=== PATIENT | female | born 1945 | race Caucasian/White ===

== ENCOUNTER → 2016-11-04 | Outpatient (CLI) | payer OTHER, MEDICARE | LOC: BMCIMAGING 14:43 | DX: Z12.31 Encounter for screening mammogram for malignant neoplasm of breast (principal); Z85.3 Personal history of malignant neoplasm of breast | CPT/HCPCS: G0202 ==

== ENCOUNTER 2017-04-21 11:44 | Outpatient (CLI) | payer OTHER, MEDICARE ==
[2017-04-21] MEDS ORDERED: PROPOFOL/EMULSION 500 MG/50 ML BOTTLE IV ONE (11:59)
[2017-04-21] MEDS ORDERED: SUCCINYLCHOLINE CHLORIDE 200 MG/10 ML VIAL ONE (12:04)
[2017-04-21] MEDS ORDERED: ROCURONIUM 100 MG/10 ML VIAL ONE (12:04)
[2017-04-21] MEDS ORDERED: PROPOFOL 200 MG/20 ML VIAL ONE (12:06)
--- NOTE | 2017-04-21 12:48 | PDANEPAE ---
ANE Past Medical History - Cardiovascular History Hx Hypertension: No Hx Arrhythmias: No Hx Chest Pain: No Hx Coronary Artery / Peripheral Vascular Disease: No Hx CHF / Valvular Disease: No Hx Palpitations: No - Pulmonary History Hx COPD: No Hx Asthma/Reactive Airway Disease: No Hx Recent Upper Respiratory Infection: No Hx Oxygen in Use at Home: No Hx Sleep Apnea: No Sleep Apnea Screening Result - Last Documented: Negative - Neurologic History Hx Cerebrovascular Accident: No Hx Seizures: No Hx Dementia: No - Endocrine History Hx Diabetes: No - Renal History Hx Renal Disorders: No - Liver History Hx Hepatic Disorders: No - Neurological & Psychiatric Hx Hx Neurological and Psychiatric Disorders: Yes - Cancer History Hx Cancer: No - Congenital Disorder History Hx Congenital Disorders: No - GI History Hx Gastrointestinal Disorders: No - Chronic Pain History Chronic Pain: No - Surgical History Prior Surgeries: L. knee surgery. Flavio in Right leg. ANE Review of Systems Review of Systems: - Exercise capacity METS (RN): 4 METS ANE Patient History - Allergies Allergies/Adverse Reactions: No Known Allergies Allergy (Verified 03/28/17 15:33) - Home Medications Home Medications: Calcium Citrate W/Vit D [Citracal + D (OTC)] 315 mg PO DAILY 09/21/11 [Last Taken 04/20/17] Multivitamins [Multivitamin (*)] 1 each PO DAILY 03/21/17 [Last Taken 04/20/17] Oxybutynin Chloride [Ditropan Xl] 10 mg PO DAILY 03/21/17 [Last Taken 04/20/17] - Smoking Hx Smoking Status: Never smoked ANE Labs/Vital Signs - Labs Result Diagrams: 04/21/17 12:30 - Vital Signs Blood Pressure: 124/77 Heart Rate: 73 Respiratory Rate: 18 O2 Sat (%): 91 Height: 167.64 cm Weight: 49.895 kg ANE Physical Exam - Airway Mallampati Score: Class 1 - ASA Status ASA Status: II ANE Anesthesia Plan Anesthesia Plan: GA w LMA
[2017-04-21] MEDS ORDERED: GADOBUTROL 10 ML VIAL IVP ONE (12:57)
[2017-04-21] MEDS ORDERED: MIDAZOLAM 2 MG/2 ML VIAL ONE (13:00)
[2017-04-21] MEDS ORDERED: NALOXONE HCL 0.4 MG/ML INJ IVP PRN (14:07)
[2017-04-21] MEDS ORDERED: fentaNYL 100 MCG/2 ML INJ IVP PRN (14:07)
[2017-04-21] MEDS ORDERED: LR 500 ML IV PRN (14:07)
[2017-04-21] MEDS ORDERED: PROMETHAZINE HCL 25 MG/ML INJ IVP PRN (14:07)
--- NOTE | 2017-04-21 14:09 | POSTANESTH ---
Post Anesthetic Evaluation Cardiovascular Status: Normal, Stable Respiratory Status: Normal, Stable Level of Consciousness/Mental Status: Can Participate in Eval Pain Control: Adequate, Prn Tx Ordered Nausea/Vomiting Control: Adequate, Prn Tx Ordered Complications Possibly Related to Anesthesia: None Noted
[2017-04-21] MEDS ORDERED: ONDANSETRON 4 MG/2 ML VIAL ONE (14:29)
[2017-04-21 14:59] VITALS: TEMP 96.8
[2017-04-21 15:06] VITALS: BP 132/64; PULSE 52; RESP 14; O2SAT 99
== END 2017-04-21 15:30 | disposition home or self-care (01) ==
LOC: FSGY 11:44
PROVIDERS: ATTEND Physician Assistant Surgical
DX: R93.0 Abnormal findings on diagnostic imaging of skull and head, not elsewhere classified (principal); G25.0 Essential tremor
CPT/HCPCS: 70552; A9585; J2250; J2405; J2704; J0330

== ENCOUNTER 2017-04-27 05:15 | Inpatient (IN) | payer OTHER, MEDICARE ==
--- NOTE | 2017-04-20 11:34 | GHP ---
[f rep st] PREOP HISTORY AND PHYSICAL DATE OF ADMISSION: 04/27/2017 HPI: The patient is a 71-year-old female with essential tremor. She has been treated for years by [facility] neurologist, Dr. Mcbride. Her tremors have been present her entire life. The tremor began bila terally but is worse on the right. She is right-handed. Medication provides her with some relief fo r a period of time, however, is no longer effective. Drinking alcohol will reduce her tremors. Both her mother and sister have essential tremor. She denies rigidity, bradykinesia, or other signs and symptoms of Parkinson disease. PAST MEDICAL HISTORY: Essential tremor. PAST SURGICAL HISTORY: Denies. ALLERGIES: No known drug allergies. CURRENT HOME MEDICATIONS: Please refer to the MAR. SOCIAL HISTORY: Patient denies alcohol and tobacco use. REVIEW OF SYSTEMS: Patient denies chest pain, shortness of breath, abdominal pain, nausea, vomiting, fevers, or chills. Denies loss of bowel or bladder control. Admits to bilateral upper extremity tr emor. PHYSICAL EXAM: Patient was seen and examined, appears in no apparent distress. Mood and affect are appropriate. Alert and oriented. Facial expression is symmetrical. Tongue was in the midline with protrusion. Hearing is grossly intact. Speech is fluent without any dysarthria. Muscle strength is well preserved in upper and lower extremities at a 5/5. Sensation is intact to light touch. ASSESSMENT AND PLAN: In summary, the patient is a 71-year-old female with essential tremor. She has undergone a neuropsychological exam evaluation by Dr. Palumbo, who states that the patient is a good candidate for deep brain stimulation. We explained to the patient that DBS can reduce tremor by 60% to 90%. We discussed the option of proceeding with bilateral or unilateral DBS. With bilateral DBS , this can result in speech slurring, however, is not always the case. At this time, the patient has elected to proceed with left VIM DBS lead placement for right hand tremor. Once recovered from surg krystal, she will then determine if she would like to proceed with right VIM DBS lead placement. The ris ks, benefits, and procedure were discussed in detail with the patient. The patient has agreed and co nsented to proceed with left VIM deep brain stimulator lead placement for right hand tremor. /[id number]/MODL
[2017-04-27] MEDS ORDERED: LIDOCAINE 1% 2 ML INJ ID PRN (05:39)
[2017-04-27] MEDS ORDERED: LR 1,000 ML IV ONE (05:39)
[2017-04-27] MEDS ORDERED: CEFUROXIME 1,500 MG in STERILE WATER INJ 17 ML IV ONE (06:00)
--- NOTE | 2017-04-27 06:39 | PDHPUP ---
History & Physical Update H&P update statement: This history and physical update is based on an assessment of the patient which was completed after admission or registration (within 24 hours), but prior to the surgery/procedure. H&P update: H&P reviewed & patient examined, no change in patient's condition since H&P completed
[2017-04-27] MEDS ORDERED: EPINEPHrine 1 MG/10 ML SYR IVP ONE (06:42)
[2017-04-27] MEDS ORDERED: GENTAMICIN SULFATE 80 MG/2 ML VIAL ONE (06:42)
[2017-04-27] MEDS ORDERED: BUPIVACAINE 0.25% 30 ML SDV ONE (06:42)
[2017-04-27] MEDS ORDERED: LIDOCAINE 2% JELLY 20 ML (UROJECT) ONE (06:42)
[2017-04-27] MEDS ORDERED: THROMBIN (BOVINE) 20,000 UNIT VIAL TP ONE (06:42)
[2017-04-27] MEDS ORDERED: POVIDONE-IODINE 30 GM OINTTUBE TP ONE (06:43)
[2017-04-27] MEDS ORDERED: SURGIFLO MATRIX KIT WITH THROMBIN 8ml TP ONE (06:47)
--- NOTE | 2017-04-27 06:50 | PDANEPAE ---
ANE History of Present Illness DBS for right hand tremor ANE Past Medical History - Cardiovascular History Hx Hypertension: No Hx Arrhythmias: No Hx Chest Pain: No Hx Coronary Artery / Peripheral Vascular Disease: No Hx CHF / Valvular Disease: No Hx Palpitations: No - Pulmonary History Hx COPD: No Hx Asthma/Reactive Airway Disease: No Hx Recent Upper Respiratory Infection: No Hx Oxygen in Use at Home: No Hx Sleep Apnea: No Sleep Apnea Screening Result - Last Documented: Negative - Neurologic History Hx Cerebrovascular Accident: No Hx Seizures: No Hx Dementia: No Neurologic History Comment: essential tremor - Endocrine History Hx Diabetes: No Hypothyroid: No Hyperthyroid: No - Renal History Hx Renal Disorders: No - Liver History Hx Hepatic Disorders: No - Neurological & Psychiatric Hx Hx Neurological and Psychiatric Disorders: Yes - Cancer History Hx Cancer: No Cancer History Comment: breast 04/2013 surgery and radiation - Congenital Disorder History Hx Congenital Disorders: No - GI History Hx Gastrointestinal Disorders: No Gastrointestinal History Comment: constipation with pain medications during leg repair - Other Health History Other Health History: wears glasses - Chronic Pain History Chronic Pain: No - Surgical History Prior Surgeries: L. knee surgery. Flavio in Right leg. ANE Review of Systems Review of systems is: negative Review of Systems: - Exercise capacity Exercise capacity: >=4 METS METS (RN): 4 METS ANE Patient History - Allergies Allergies/Adverse Reactions: No Known Allergies Allergy (Verified 03/28/17 15:33) - Home Medications Home Medications: Calcium Citrate W/Vit D [Citracal + D (OTC)] 315 mg PO DAILY 09/21/11 [Last Taken 04/20/17] Multivitamins [Multivitamin (*)] 1 each PO DAILY 03/21/17 [Last Taken 04/20/17] Oxybutynin Chloride [Ditropan Xl] 10 mg PO DAILY 03/21/17 [Last Taken 04/20/17] - NPO status NPO Status: no food or drink >8 hours NPO Since - Liquids (Date): 04/27/17 NPO Since - Liquids (Time): 04:00 NPO Since - Solids (Date): 04/26/17 NPO Since - Solids (Time): 19:00 - Anes Hx Anes Hx: no prior problems - Smoking Hx Smoking Status: Never smoked - Alcohol Use Alcohol Use: None - Family Anes Hx Family Hx Anesthesia Complications: none ANE Labs/Vital Signs - Vital Signs Vital Signs: reviewed preoperatively; see RN documention for details Blood Pressure: 132/74 Heart Rate: 68 Respiratory Rate: 18 O2 Sat (%): 96 Height: 167.64 cm Weight: 49.442 kg ANE Physical Exam - Airway Neck exam: FROM Mallampati Score: Class 1 - Pulmonary Pulmonary: no respiratory distress - Cardiovascular Cardiovascular: regular rate and rhythym - ASA Status ASA Status: I ANE Anesthesia Plan Anesthesia Plan: MAC
[2017-04-27 06:55] LABS: PLATELET COUNT 172 10^3/uL (150-400)
[2017-04-27 07:09] LABS: INR 1.04 (0.83-1.16); PROTIME(PATIENT) 13.8 SEC (12.0-15.0)
[2017-04-27] MEDS ORDERED: fentaNYL 100 MCG/2 ML INJ ONE (07:11)
[2017-04-27] MEDS ORDERED: LIDOCAINE 2% 5 ML SDV ONE (07:11)
[2017-04-27] MEDS ORDERED: PROPOFOL/EMULSION 500 MG/50 ML BOTTLE IV ONE ×2 (07:11→09:24)
[2017-04-27] MEDS ORDERED: DEXMEDETOMIDINE HCL 200 MCG in NS 50 ML IV ONE (07:30)
[2017-04-27] MEDS ORDERED: niCARdipine/NACL 200 ML IV ONE (07:30)
[2017-04-27] MEDS ORDERED: ONDANSETRON 4 MG/2 ML VIAL IVP PRN ×2 (10:11→10:14)
[2017-04-27] MEDS ORDERED: LACTULOSE 20 GM/30 ML UDCUP PO PRN (10:11)
[2017-04-27] MEDS ORDERED: BISACODYL 10 MG SUPP PR PRN (10:11)
[2017-04-27] MEDS ORDERED: MAGNESIUM HYDROXIDE 30 ML UDCUP PO PRN (10:11)
[2017-04-27] MEDS ORDERED: POLYETHYLENE GLYCOL 3350 17 GM PKT PO PRN (10:11)
[2017-04-27] MEDS ORDERED: OXYCODONE/APAP 5/325 TAB PO PRN (10:14)
[2017-04-27] MEDS ORDERED: ACETAMINOPHEN 500 MG TAB PO PRN (10:14)
[2017-04-27] MEDS ORDERED: fentaNYL 100 MCG/2 ML INJ IVP PRN (10:14)
[2017-04-27] MEDS ORDERED: NALOXONE HCL 0.4 MG/ML INJ IVP PRN (10:14)
[2017-04-27] MEDS ORDERED: NS W/ 20 KCl/L 1,000 ML IV SCH (10:15)
[2017-04-27] MEDS ORDERED: HYDROCODONE/APAP 5/325 TAB PO PRN (10:16)
--- NOTE | 2017-04-27 10:26 | GOP ---
[f rep st] OPERATIVE REPORT DATE OF OPERATION: 04/27/2017 SURGEON: Ramandeep Denney DO NEUROSURGEON: Ramandeep Denney DO MINE MANAGER: None. PREOPERATIVE DIAGNOSIS: Essential tremor. POSTOPERATIVE DIAGNOSIS: Essential tremor. PROCEDURE PERFORMED: 1. Placement of right VIM deep brain stimulator lead placement with Medtronic 3387 lead. 2. Stealth. FINDINGS: SPECIMENS: None. ESTIMATED BLOOD LOSS: 20 mL. INDICATIONS: This is a 71-year-old female with benign essential tremor, was evaluated by a multidisc iplinary team and found to be a good candidate for DBS for essential tremor. She elected to move for dawson with a left-sided lead placement for right-sided body symptoms. DESCRIPTION OF PROCEDURE: She was identified, consented. Sites were marked. Brought to the operati ng room, anesthetized under local with MAC. Hair was clipped with the OR clippers. Head was cleanse d with ChloraPrep. 0.25% Marcaine with epinephrine was used to anesthetize the pin sites and povidon e-iodine was placed on the pins. A Leksell frame was placed in a stereotactic fashion, and an O-arm 2 spin with the stereotactic localizer box was performed and merged to the preoperative plan in the [employer] software. The ACPC distance was 24.2 mm. The entry point was an X of -36.84, Y of 36.09, Z of 62.58. The target was an X of -14.13, a y of -5.71, a Z of -0.24. This corresponded to an X of 119, a Y of 89, a Z of 93.5, a ring of 57 degrees, and an arc of 107.[address] We elected to place the center on posterior tract, particularly given the fact that she had a very short ACPC. She was prepped and draped in the usual sterile fashion. All Leksell frame coordinates were set and triple c hecked by all providers in the room. The incision site was marked using the preoperatively planned L sell frame coordinates, and a half-townsend incision was anesthetized with 0.25% Marcaine with epinephr ine. Incision was made with a 10 blade. Hemostasis was obtained with bipolar and Selina clips. Kim osteal elevator was used to elevate the periosteum. The skull opening was marked using the cannula i n the preoperative coordinates, and a aerial applicator pilot hole was drilled. Then a 14 mm bur hole was drilled, and the bone edges were waxed. The dura was opened sharply with an 11 blade. Bipolar was used for hemo stasis. We then gently inserted both the center and posterior cannulas and stylets and placed Gelfoa m and DuraSeal. We then removed the stylets, placed the microelectrodes, and then performed microele ctrode recording. We got excellent recordings. Please refer to Elaine Naqvi's ESTEVAN for those jan rdings; however, the posterior tract was more active. We did get motor driving as well as deep and l ight touch in the appropriate position. We elected to macro stim here. We got excellent results wit h macro stim. We elected to place the lead where we got out of the IM at the bottom of the bottom co ntact at 1 blow. We drove this into position, removed the microelectrodes, placed the stylet in the center cannula, measured and placed the lead, tested the lead at all 4 contacts, got excellent stimul ation effect with low to no side effects. Elected to leave the lead here. Took an x-ray with the jeff mb sites, removed the center cannula, performed a stereotactic spin which was merged to the preoperat maksim plan, and indeed we were at the 2 mm posterior, perfectly accurate to where we expected to be. W e then retracted the removed the Gel-Foam and DuraSeal, retracted the cannula, placed the clipping me mary. It should have been noted that the stim lock device was locked down with 5 mm screws prior to placing the leads, and the clipping mechanism was verified to clip and lock. We placed a clip, lo cked it into place, marked the lead, removed the stylet, brought the lead down and out, placed it int o the groove, placed the cap, and took another x-ray. It had not migrated. Placed the boot over the lead extension complex, placed extension over protecting each contact with the torque wrench, locked it into place with the torque wrench, brought the boot over the lead extension complex, tied it in p osition with 2-0 silk ties at 2 positions tunneled posteriorly with a periosteal elevator. Anestheti zed the stab incision with 11 blade with 0.25% Marcaine. Then with an 11 blade, made a stab incision , tunneled posterior to anterior, brought the lead extension down and out, coiling the lead posterior and around the incision. Took another x-ray. It had not migrated. Copiously irrigated with over a liter of gentamicin-infused saline. Closed the galea with 2-0 Vicryl pop-offs. The skin was closed with 3-0 running nylon. The wound was dressed with Xeroform and Telfa. The frame was removed. Pat ient tolerated procedure well. No complications. MICROELECTRODE RECORDING: Elaine Naqvi PA-C. Please refer to her dictation for all ESTEVAN. FLUIDS: 600 mL of crystalloid. URINE OUTPUT: 100 mL. DRAINS: None. COMPLICATIONS: None. /[id number]/MODL
[2017-04-27] MEDS ORDERED: hydrALAZINE 20 MG/ML VIAL IVP PRN ×2 (10:35→18:00)
--- NOTE | 2017-04-27 10:38 | POSTOPPROG ---
Post Op Note Date of Operation: 04/27/17 Surgeon: Ramandeep Denney Grassroots Organizer: Elaine Naqvi PA-C Anesthesiologist: Dr. Ramírez Anesthesia: IV Sedation Pre-op Diagnosis: Essential Tremor Post-op Diagnosis: Essential Tremor Procedure: Left DBS VIM lead placement Inf/Abcess present in the surg proc area at time of surgery?: No Depth: Deep Incisional (Fascial) EBL: Minimal Plan Plan: 71 yo female s/p left VIM DBS lead placement - neuro checks - pain control - postop head CT pending - maintain SBP < 140 - dispo: home tomorrow Exam Awake. Alert PERRL. EOMI Facial expression symmetrical Strength full
--- NOTE | 2017-04-27 11:02 | GPN ---
[f rep st] PROCEDURE NOTE DATE OF PROCEDURE: 04/27/2017 PREPROCEDURE DIAGNOSIS: Parkinson disease. POSTPROCEDURE DIAGNOSIS: Parkinson disease. PROCEDURE PERFORMED: Intraoperative functional subcortical mapping by microelectrode recording and s timulation. COMPLICATIONS: None. INDICATIONS FOR PROCEDURE: Determination of optimal electrode lead placement for deep brain stimulat ion therapy for essential tremor to the ventral intermediate nucleus. DESCRIPTION OF PROCEDURE: Following the incision on the left, a john hole was drilled. The arc was then arranged with the following coordinates: X 118, Y 89, and V 93.5, ring 57, arc 107.2. The jan rding microelectrode was then slowly advanced into the brain using a center and a posterior tract. T here was evidence of entering VIM in the center tract at 7 above target, and change in stimulation wi th passive range of motion of the shoulder at 6.5 above target. Overall, the posterior tract was mor e active. There was evidence of entering VIM at 8 above target. There was change in stimulation wit h passive range of motion of the elbow, flexion at 6.5 above target. There was change in stimulation with deep touch to the hand at 1.6 above target, and light touch to the mouth at 0.9 below target. With these microelectrode recordings, we then proceeded with macro stimulation. The patient had trem or improvement at 4.0, however, did have some constant tingling of the right-sided lip, tongue, face region. We elected to proceed with test stimulation with the posterior tract. The lead was placed w ith the bottom of the lead at 1 below target. At 0- patient had right arm tingling, persistent at 2. 0 with improved tremor control. At 1- patient had improved tremor control at 2.0, transient tingling in her right arm at 3.0, and persistent 3.5. At 2- patient had improved tremor at 2.0, with no side effects up to 3.5. At 3- patient had improved tremor with no side effects up to 3.5. We elected to leave the lead at this location with the bottom of the lead at 1 below target. The patient tolerate d the procedure well without any complications, and was transferred to recovery. /[id number]/MODL
[2017-04-27] MEDS: ACETAMINOPHEN 325 MG TAB PO PRN ×2 (14:30→23:56)
[2017-04-27] MEDS: CEFUROXIME 1,500 MG in STERILE WATER INJ 17 ML IV SCH ×2 (17:03→23:51)
[2017-04-27] MEDS ORDERED: hydrALAZINE 20 MG/ML VIAL IVP ONE (17:45)
--- NOTE | 2017-04-27 18:19 | PDMN ---
Medical Necessity Medical necessity: Pt meets IP criteria; [facility] IP only surgery CPT 23207 Neurosurgery
[2017-04-27] MEDS: SENNOSIDES/DOCUSATE SODIUM TAB PO SCH (22:03)
[2017-04-28 08:15] VITALS: BP 135/78; PULSE 75; RESP 16; TEMP 98.5; O2SAT 93
[2017-04-28] MEDS: SENNOSIDES/DOCUSATE SODIUM TAB PO SCH (08:23)
--- NOTE | 2017-04-28 08:24 | NEUSURGPN ---
Date of Surgery: 04/27/17 Post Op Day: 1 Assessment/Plan: 71 yo female s/p left VIM DBS lead placement POD #1 - pain control, patient has expected incisional pain - postop head CT stable -removed head wrap and stapled telfa, redressed with telfa and tape - dispo: patient may dc to home today -patient discussed with Dr Denney -Please call neurosurgery with any questions/concerns Subjective: incisional discomfort improved with head wrap removed Objective: Awake. Alert PERRL. EOMI Facial expression symmetrical Strength full Neuro Check Frequency: per routine Urinary Catheter in Place: No - Physician Discussed Patient with : [facility] Physical Exam - Vitals, I&O, Labs I and O 04/27/17 04/28/17 04/29/17 05:59 05:59 05:59 Intake Total 1100 Output Total 1994 Balance -895 Weight 49.442 kg Intake: Oral (ml) 200 IV Intake (ml) 900 Output: Urine (ml) 1975 Catheter 175 Toilet 1800 Estimated Blood Loss (ml) 20 Other: Intake Quantity Yes Sufficient Number of Voids Toilet 1 Number of Emesis 1 Occurrences Vital Signs Temp Pulse Resp BP Pulse Ox 36.9 C 75 16 135/78 H 93 04/28/17 08:00 04/28/17 08:00 04/28/17 08:00 04/28/17 08:00 04/28/17 08:00 Laboratory Results 04/27/17 06:45 04/27/17 06:45 ICD10 Worksheet Patient Problems: Problems Problem Status Onset Essential tremor Acute - ICD10 Problem Qualifiers (1) Essential tremor
[2017-04-28] MEDS ORDERED: OXYBUTYNIN 5 MG EXT REL TAB PO SCH (09:00)
[2017-04-28] MEDS ORDERED: NON-FORMULARY NEW DRUG (Oxybutynin Chloride [Ditropan Xl] 10 MG) PO SCH (09:00)
--- NOTE | 2017-04-28 11:52 | ASMTCMCOM ---
CM Note CM Note Notes: Pt medically stable for d/c, no CM d/c needs identified. PT rec home. Pt son will stay w her. Date Signed: 04/28/2017 11:51 AM Electronically Signed By:LONG Hook
[2017-04-30] MEDS ORDERED: ENOXAPARIN 40 MG/0.4 ML SYR SC SCH (09:00)
== END 2017-04-28 10:20 | disposition home or self-care (01) | DRG 27 ==
LOC: F3E 05:15 → F3N 13:10
PROVIDERS: ADMIT Neurological Surgery; ATTEND Neurological Surgery
PROC: 00K03ZZ Map Brain, Percutaneous Approach (ICD-10-PCS; principal; 2017-04-27 07:15)
PROC: 00H03MZ Insertion of Neurostimulator Lead into Brain, Percutaneous Approach (ICD-10-PCS; principal; 2017-04-27 07:15)
DX: G25.0 Essential tremor (principal)
CPT/HCPCS: 97161-GP; C1713; G8978-GP-CI; G8979-GP-CI; G8980-GP-CI; J0171; J0360; J0697; J1580; J2704; J3010

== ENCOUNTER 2017-05-25 05:41 | Day surgery (SDC) | payer OTHER, MEDICARE ==
[2017-05-25] MEDS ORDERED: ceFAZolin 2 GM/SWFI 2 GM/20 ML SYR IVP ONE (06:29)
--- NOTE | 2017-05-25 07:03 | PDANEPAE ---
ANE History of Present Illness essential tremor ANE Past Medical History - Cardiovascular History Hx Hypertension: No Hx Arrhythmias: No Hx Chest Pain: No Hx Coronary Artery / Peripheral Vascular Disease: No Hx CHF / Valvular Disease: No Hx Palpitations: No - Pulmonary History Hx COPD: No Hx Asthma/Reactive Airway Disease: No Hx Recent Upper Respiratory Infection: No Hx Oxygen in Use at Home: No Hx Sleep Apnea: No Sleep Apnea Screening Result - Last Documented: Negative - Neurologic History Hx Cerebrovascular Accident: No Hx Seizures: No Hx Dementia: No Neurologic History Comment: ESSENTIAL TREMOR - Endocrine History Hx Diabetes: No Hypothyroid: No Hyperthyroid: No Obesity: no - Renal History Hx Renal Disorders: No - Liver History Hx Hepatic Disorders: No - Neurological & Psychiatric Hx Hx Neurological and Psychiatric Disorders: Yes - Cancer History Hx Cancer: Yes Cancer History Comment: BREAST - Congenital Disorder History Hx Congenital Disorders: No - GI History GERD: no Hx Gastrointestinal Disorders: No Gastrointestinal History Comment: constipation with pain medications during leg repair - Other Health History Other Health History: wears glasses - Chronic Pain History Chronic Pain: No - Surgical History Prior Surgeries: DEEP BRAIN STIMULATOR STAGE 1 04/28/2017. BREAST LUMPECTOMY WITH LYMPH NODE REMOVAL 04/2003. L. knee surgery. Flavio in Right leg. ANE Review of Systems Review of Systems: - Exercise capacity METS (RN): 4 METS ANE Patient History - Allergies Allergies/Adverse Reactions: No Known Allergies Allergy (Verified 03/28/17 15:33) - Home Medications Home Medications: Calcium Citrate W/Vit D [Citracal + D] 315 mg PO DAILY 09/21/11 [Last Taken ] Multivitamins [Multivitamin (*)] 1 each PO DAILY 03/21/17 [Last Taken 04/20/17] Oxybutynin Chloride [Ditropan Xl] 10 mg PO DAILY 03/21/17 [Last Taken 04/20/17] - Anes Hx Anes Hx: no prior problems - Smoking Hx Smoking Status: Never smoked - Alcohol Use Alcohol Use: None - Family Anes Hx Family Anes Hx: none Family Hx Anesthesia Complications: none ANE Labs/Vital Signs - Vital Signs Height: 172.72 cm Weight: 49.895 kg ANE Physical Exam - Airway Neck exam: FROM Mallampati Score: Class 1 Mouth exam: normal dental/mouth exam - Pulmonary Pulmonary: clear to auscultation - Cardiovascular Cardiovascular: regular rate and rhythym - ASA Status ASA Status: II ANE Anesthesia Plan Anesthesia Plan: general endotracheal anesthesia Lines/Monitors: MANUEL
[2017-05-25] MEDS ORDERED: MIDAZOLAM 2 MG/2 ML VIAL IVP ONE (07:04)
[2017-05-25] MEDS ORDERED: LIDOCAINE 1% 2 ML INJ ID PRN (07:07)
[2017-05-25] MEDS ORDERED: LR 1,000 ML IV ONE (07:07)
[2017-05-25] MEDS ORDERED: BUPIVACAINE 0.25% 30 ML SDV ONE (08:06)
[2017-05-25] MEDS ORDERED: CHLORHEXIDINE GLUC HIBICLENS 118 ML BTL TP ONE (08:06)
[2017-05-25] MEDS ORDERED: GENTAMICIN SULFATE 80 MG/2 ML VIAL ONE (08:07)
[2017-05-25] MEDS ORDERED: DEXAMETHASONE 4 MG/ML VIAL ONE (09:10)
[2017-05-25] MEDS ORDERED: ROCURONIUM 50 MG/5 ML VIAL ONE (09:10)
[2017-05-25] MEDS ORDERED: PROPOFOL 200 MG/20 ML VIAL ONE (09:10)
[2017-05-25] MEDS ORDERED: MIDAZOLAM 2 MG/2 ML VIAL ONE (09:21)
[2017-05-25] MEDS ORDERED: LIDOCAINE 1% 300 MG/30 ML SDV ONE (09:55)
[2017-05-25] MEDS ORDERED: ONDANSETRON 4 MG/2 ML VIAL ONE (10:03)
[2017-05-25] MEDS ORDERED: SUGAMMADEX SODIUM 200 MG/2 ML VIAL IVP ONE (10:22)
[2017-05-25] MEDS ORDERED: ONDANSETRON 4 MG/2 ML VIAL IVP PRN (10:37)
[2017-05-25] MEDS ORDERED: fentaNYL 100 MCG/2 ML INJ IVP PRN (10:37)
[2017-05-25] MEDS ORDERED: NALOXONE HCL 0.4 MG/ML INJ IVP PRN (10:37)
[2017-05-25] MEDS ORDERED: HYDROCODONE/APAP 5/325 TAB PO PRN (10:52)
[2017-05-25] MEDS ORDERED: ACETAMINOPHEN 325 MG TAB PO PRN (10:53)
--- NOTE | 2017-05-25 10:55 | POSTOPPROG ---
Post Op Note Date of Operation: 05/25/17 Surgeon: Ramandeep Denney Make Up Arranger: Elaine Naqvi PA-C Anesthesiologist: Dr. Ashish Kc Anesthesia: GET(General Endotracheal) Pre-op Diagnosis: Essential tremor Post-op Diagnosis: Essential tremor Procedure: Left DBS generator implant Inf/Abcess present in the surg proc area at time of surgery?: No Depth: Superfical (Skin SQ) EBL: Minimal Plan Plan: 71 yo female s/p left DBS generator implant - neuro checks - pain control - advance diet as tolerated - dc home today Exam Seen in recovery. Pain controlled. Awake. Alert. PERRL. Facial expression symmetrical Incisions with dressings c/d/i
--- NOTE | 2017-05-25 11:02 | GOP ---
[f rep st] OPERATIVE REPORT DATE OF OPERATION: 05/25/2017 SURGEON: Ramandeep Denney DO NEUROSURGEON: Ramandeep Denney DO STAMP PAD FINISHER: PALLAVI Eden PREOPERATIVE DIAGNOSIS: Essential tremor. POSTOPERATIVE DIAGNOSIS: Essential tremor. PROCEDURE PERFORMED: 1. Placement of left deep brain stimulator generator and extension. 2. Impedances. FINDINGS: SPECIMENS: None. ESTIMATED BLOOD LOSS: 10 mL. INDICATIONS: This is a 71-year-old female with an indwelling deep brain stimulator lead to be connec jordan to generator today. She was identified, consented, offered submuscular versus subfascial given h er body habitus. She elected subfascial and declined submuscular placement of the generator. Incisi on sites were marked. DESCRIPTION OF PROCEDURE: She was brought to the operating room, anesthetized under general endotrac heal tube anesthesia, placed on the OR table in a supine position with her head turned to the right. The incision sites were marked. She had been prepped and draped in the usual sterile fashion. The incision at the chest wall was anesthetized with 0.25% Marcaine with epinephrine. An incision ma de was made just lateral to lead extension complex with a 10 blade, dissecting out the lead extension complex, and then an incision was made at the chest wall for the generator pocket. A subfascial poc ket was created. We tunneled in a single pass from the head down to the chest wall, bringing the neymar d extension up and out, cut the stay sutures on the lead extension complex with an 11 blade, retracte d the boot, protecting each contact, removed the extension and the boot, discarded these. Placed a n ew boot, gently dried the lead, placed it into the extension, locked it into place using the torque w rench, protecting each contact, brought the boot over the lead extension complex, tied it in position with 2-0 silk ties at 2 positions, brought it flat against the skull, placed the extension into the generator, locked it into place with the torque wrench. Coiled the wires posterior to the generator. Checked impedances. All impedances were good. Sutured the generator to the pocket with 2-0 silk s titch at 2 positions. Copiously irrigated each incision with over a liter each of gentamicin infused saline. At the scalp, the scalp was exceedingly thin and so some scar tissue was elevated and reapp roximated over the lead extension complex, and then the galea was closed with 2-0 Vicryl pop-offs and the skin was closed with 3-0 running nylon. At the chest wall, the fascia was closed with 2-0 Vicry l pop-offs, subcutaneous layer with 3-0 Vicryl pop-offs. The skin was closed with 4-0 running Monocr yl and Dermabond. Head incision was dressed with Xeroform gauze and a Tegaderm. The patient tolerated the procedure well. No complications. Again, impedances were good. FLUIDS: 600 mL crystalloid. URINE OUTPUT: None. DRAINS: None. COMPLICATIONS: None. /[id number]/MODL
[2017-05-25 11:18] VITALS: PULSE 61; RESP 20
[2017-05-25 12:52] VITALS: BP 142/79; O2SAT 100
[2017-05-25 13:16] VITALS: TEMP 97.9
== END 2017-05-25 13:16 | disposition home or self-care (01) ==
LOC: FSGY 05:41
PROVIDERS: ATTEND Neurological Surgery
PROC: 0JH60BZ Insertion of Single Array Stimulator Generator into Chest Subcutaneous Tissue and Fascia, Open Approach (ICD-10-PCS; principal; 2017-05-25 08:30)
DX: G25.0 Essential tremor (principal); Z85.3 Personal history of malignant neoplasm of breast
CPT/HCPCS: C1767; C1787; C1883; J0171; J0690; J1100; J1580; J2250; J2405; J2704

== ENCOUNTER → 2017-11-16 | Outpatient (CLI) | payer OTHER, MEDICARE | LOC: BMCIMAGING 13:42 | DX: Z12.31 Encounter for screening mammogram for malignant neoplasm of breast (principal); Z85.3 Personal history of malignant neoplasm of breast; Z80.3 Family history of malignant neoplasm of breast ==